=== PATIENT | female | born 1995 | race Asian ===

== ENCOUNTER 2021-05-03 09:50 | Emergency (ER) | payer OTHER ==
[~2021-05-03] VITALS: Ht 154.9 cm; Wt 45.1 kg
[2021-05-03 09:56] VITALS: BP 113/72
[2021-05-03] MEDS ORDERED: IV NORMAL SALINE 1,000ML 1,000 ML IV ONE (10:30)
[2021-05-03] MEDS ORDERED: ONDANSETRON PF 4 MG/2 ML VIAL. IVP ONE (10:30)
--- NOTE | 2021-05-03 10:35 | PHYS DOC ---
Past History Past Medical History: No Pertinent History (MINDY CHAVES APRN) Past Surgical History: Appendectomy, Other Additional Past Surgical Histo: hernia repairx2 (MINDY CHAVES APRN) Smoking: Non-smoker Alcohol Use: None Drug Use: None (MINDY CHAVES APRN) General Adult EDM: Chief Complaint: NAUSEA/VOMITING/DIARRHEA HPI: HPI: Patient is a 25-year-old female that presents today with abdominal pain, nausea/vomiting. Patient states that last evening she ate out at a [employer] establishment and had a steak, she said she woke up this morning about 430 5:00 and started throwing up, she has been unable to keep any liquids down, she had one episode of diarrhea during that time. Patient denies chest pain, shortness of air, fever, or cough. (MINDY CHAVES APRN) Review of Systems: Review of Systems: Constitutional: Denies fever or chills Eyes: Denies change in visual acuity HENT: Denies nasal congestion or sore throat Respiratory: Denies cough or shortness of breath Cardiovascular: Denies chest pain or edema GI: Abdominal pain, nausea, vomiting, diarrhea denies bloody stools : Denies dysuria Musculoskeletal: Denies back pain or joint pain Integument: Denies rash Neurologic: Denies headache, focal weakness or sensory changes Endocrine: Denies polyuria or polydipsia Lymphatic: Denies swollen glands Psychiatric: Denies depression or anxiety (MINDY CHAVES APRN) Current Medications: Current Meds: Current Medications Medications (Trade) Dose Ordered Sig/Tashi Start Time Stop Time Status Last Admin Dose Admin Ondansetron HCl (Zofran) 4 mg 1X ONCE 05/03/21 10:30 05/03/21 10:31 UNV Sodium Chloride 1,000 ml @ 1,000 mls/hr 1X ONCE 05/03/21 10:30 05/03/21 11:29 UNV (MINDY CHAVES APRN) Allergies: Allergies: Allergies Coded Allergies Type Severity Reaction Last Updated Verified No Known Drug Allergies 05/03/21 No (MINDY CHAVES APRN) Physical Exam: PE: Constitutional: Well developed, well nourished, no acute distress, non-toxic appearance. [] HENT: Normocephalic, atraumatic, bilateral external ears normal, oropharynx moist, no oral exudates, nose normal. [] Eyes: PERRLA, EOMI, conjunctiva normal, no discharge. [] Neck: Normal range of motion, no tenderness, supple, no stridor. [] Cardiovascular:Heart rate regular rhythm, no murmur [] Lungs & Thorax: Bilateral breath sounds clear to auscultation [] Abdomen: Inspection and palpation of the abdomen shows abdomen flat somewhat guarded diffusely, tenderness over the umbilicus. Bowel sounds are hypoactive no pulsatile masses noted Skin: Warm, dry, no erythema, no rash. [] Back: No tenderness, no CVA tenderness. [] Extremities: No tenderness, no cyanosis, no clubbing, ROM intact, no edema, cap refill less than 2 seconds peripheral pulses 2+. Neurologic: Alert and oriented X 3, normal motor function, normal sensory function, no focal deficits noted. [] Psychologic: Affect normal, judgement normal, mood normal. [] (MINDY CHAVES APRN) Current Patient Data: Labs: Laboratory Tests Test 05/03/21 10:47 05/03/21 11:00 White Blood Count 17.3 x10^3/uL Red Blood Count 4.47 x10^6/uL Hemoglobin 13.4 g/dL Hematocrit 39.9 % Mean Corpuscular Volume 89 fL Mean Corpuscular Hemoglobin 30 pg Mean Corpuscular Hemoglobin Concent 34 g/dL Red Cell Distribution Width 12.8 % Platelet Count 204 x10^3/uL Neutrophils (%) (Auto) 95 % Lymphocytes (%) (Auto) 1 % Monocytes (%) (Auto) 4 % Eosinophils (%) (Auto) 0 % Basophils (%) (Auto) 0 % Neutrophils # (Auto) 16.3 x10^3uL Lymphocytes # (Auto) 0.2 x10^3/uL Monocytes # (Auto) 0.7 x10^3/uL Eosinophils # (Auto) 0.0 x10^3/uL Basophils # (Auto) 0.0 x10^3/uL Platelet Estimate Pending Urine Collection Type Unknown Urine Color Yellow Urine Clarity Hazy Urine pH 7.0 Urine Specific Marion >=1.030 Urine Protein Neg Urine Glucose (UA) Neg mg/dL Urine Ketones (Stick) Neg mg/dL Urine Blood Trace Urine Nitrite Neg Urine Bilirubin Neg Urine Urobilinogen Dipstick 0.2 mg/dL Urine Leukocyte Esterase Neg Urine RBC 3-5 /HPF Urine WBC 5-10 /HPF Urine Squamous Epithelial Cells Many /LPF Urine Bacteria Many /HPF Urine Mucus Slight /LPF Sodium Level 142 mmol/L Potassium Level 4.1 mmol/L Chloride Level 106 mmol/L Carbon Dioxide Level 25 mmol/L Anion Gap 11 Blood Urea Nitrogen 18 mg/dL Creatinine 0.8 mg/dL Estimated GFR (Cockcroft-Gault) 86.7 BUN/Creatinine Ratio 23 Glucose Level 103 mg/dL Calcium Level 8.5 mg/dL Total Bilirubin 0.8 mg/dL Aspartate Amino Transf (AST/SGOT) 20 U/L Alanine Aminotransferase (ALT/SGPT) 23 U/L Alkaline Phosphatase 57 U/L Total Protein 7.5 g/dL Albumin 4.1 g/dL Albumin/Globulin Ratio 1.2 Lipase 113 U/L Bedside Urine HCG, Qualitative hcg negative Current Medications Medications (Trade) Dose Ordered Sig/Tashi Route PRN Reason Start Time Stop Time Status Last Admin Dose Admin Sodium Chloride 1,000 ml @ 1,000 mls/hr 1X ONCE IV 05/03/21 10:30 05/03/21 11:29 DC 05/03/21 10:56 Ondansetron HCl (Zofran) 4 mg 1X ONCE IVP 05/03/21 10:30 05/03/21 10:38 DC 05/03/21 10:56 Fentanyl Citrate (Fentanyl 2ml Vial) 50 mcg 1X ONCE IVP 05/03/21 10:45 05/03/21 10:46 DC 05/03/21 10:57 Vital Signs: Vital Signs Date Time Temp Pulse Resp B/P (MAP) Pulse Ox O2 Delivery O2 Flow Rate FiO2 05/03/21 09:56 98.1 93 20 113/72 (86) Room Air (MINDY CHAVES APRN) EKG: EKG: [] (MINDY CHAVES SCREEDMAN/LABORER) Radiology/Procedures: Radiology/Procedures: [] (MINDY CHAVES APRN) Heart Score: C/O Chest Pain: N/A Risk Factors: Risk Factors: DM, Current or recent (<one month) smoker, HTN, HLP, family history of CAD, obesity. Risk Scores: Score 0 - 3: 2.5% MACE over next 6 weeks - Discharge Home Score 4 - 6: 20.3% MACE over next 6 weeks - Admit for Clinical Observation Score 7 - 10: 72.7% MACE over next 6 weeks - Early Invasive Strategies (MINDY CHAVES APRN) Course & Med Decision Making: Course & Med Decision Making Pertinent Labs and Imaging studies reviewed. (See chart for details) 1150 I reviewed laboratory results with Dr. Patel, also reviewed all laboratory results with patient did inform patient that her white count was elevated but could be reactionary to her having vomiting and if she has some kind of reaction to the food she ate last night it could be related to that. Patient did state after talking with her that she had her appendix out a couple years ago, did inform her that if her pain starts getting worse or changing any way to return to the emergency department. Patient states her pain is now 3 out of 10, she also states she is able to take p.o. fluids so we will discharge patient for management on outpatient basis for her to return if she is unable to keep any fluids down. Patient and her significant other verbalized understanding of this and agreeable to the plan of care. (MINDY CHAVES APRN) Course & Med Decision Making I was the Attending physician on the above date of service of this patient. This patient was evaluated, examined, treated, and dispositioned from the emergency department by the mid-level practitioner. I reviewed case with COLLECTOR prior to departure and agreed to plan of care that included discharge given symptomatic improvement and no obvious findings on work-up and/or physical exam findings consistent with a surgical abdomen Electronically signed, Lulu Lim DO (LULU LIM DO) Maric[place] Disclaimer: Maricruz Disclaimer: This electronic medical record was generated, in whole or in part, using a voice recognition dictation system. (MINDY CHAVES APRN) Departure Departure: Impression: Primary Impression: Viral gastroenteritis Disposition: HOME / SELF CARE / HOMELESS Condition: STABLE Referrals: PCP,UNKNOWN (PCP) Patient Instructions: Clear Liquid Diet, Viral Gastroenteritis Additional Instructions: Clear liquids for the next 24 hours, then advance to a brat diet (bananas, rice, applesauce, toast, or mashed potatoes), then if tolerating a brat diet advance as tolerated Zofran 4 mg take 1 tablet every 6-8 hours as needed for nausea and vomiting. When taking this medication take 1 tablet with a sip of water, wait 30 to 45 minutes before trying any by mouth fluid. Use with caution may cause constipation Return to the emergency department if your pain worsens, you are unable to keep any fluids down even with the use of Zofran, you start running a fever, or have any other concerns. Scripts Ondansetron (ONDANSETRON ODT) 4 Mg Tab.rapdis 1 TAB PO PRN Q6-8HRS for nasuea, #16 TAB Prov: MINDY CHAVES APRN 05/03/21 MINDY CHAVES APRN May 03, 2021 10:35 LULU LIM DO May 04, 2021 09:12
[2021-05-03 11:13] LABS: BASO % 0 % (0-3); EOS % 0 % (0-3); HEMATOCRIT 39.9 % (36.0-47.0); HEMOGLOBIN 13.4 g/dL (12.0-15.5); LYMPH # 0.2 x10^3/uL (1.0-4.8); LYMPH % 1 % (24-48); MEAN CORPUSCULAR HEMOGLOBIN 30 pg (25-35); MEAN CORPUSCULAR HGB CONC 34 g/dL (31-37); MEAN CORPUSCULAR VOLUME 89 fL (79-100); MONO # 0.7 x10^3/uL (0.0-1.1); MONO % 4 % (0-9); NEUT # 16.3 x10^3uL (1.8-7.7); NEUT % 95 % (31-73); PLATELET COUNT 204 x10^3/uL (140-400); RED BLOOD COUNT 4.47 x10^6/uL (3.50-5.40); RED CELL DISTRIBUTION WIDTH 12.8 % (11.5-14.5); WHITE BLOOD COUNT 17.3 x10^3/uL (4.0-11.0)
[2021-05-03 11:14] LABS: CALCIUM 8.5 mg/dL (8.5-10.1); CREATININE 0.8 mg/dL (0.6-1.0); GFR 86.7; POTASSIUM 4.1 mmol/L (3.5-5.1)
[2021-05-03 11:20] LABS: ALBUMIN 4.1 g/dL (3.4-5.0); ALBUMIN/GLOBULIN RATIO 1.2 (1.0-1.7); TOTAL BILIRUBIN 0.8 mg/dL (0.2-1.0); TOTAL PROTEIN 7.5 g/dL (6.4-8.2)
[2021-05-03 11:31] LABS: BACTERIA,URINE MANY /HPF (0-FEW); BILIRUBIN,URINE NEG (NEG); CLARITY,URINE HAZY; COLOR,URINE YELLOW; GLUCOSE,URINE NEG (NEG); NITRITE,URINE NEG (NEG); SQUAMOUS EPITHELIAL CELL,UR MANY /LPF; UROBILINOGEN,URINE 0.2 mg/dL (0.2 mg/dL)
[2021-05-03] MEDS ORDERED: ONDA4TAB12 PO (11:59)
[2021-05-03 12:17] LABS: % BANDS 2 % (0-9); % LYMPHS 5 % (24-48); % MONOS 6 % (0-10); % SEGS 87 % (35-66); PLT ESTIMATE ADEQUATE (ADEQUATE)
== END 2021-05-03 12:11 | disposition home or self-care (01) ==
LOC: ER 09:50
DX: A08.4 Viral intestinal infection, unspecified (principal); Z90.89 Acquired absence of other organs
CPT/HCPCS: 36415; 80053; 81001; 81025; 83690; 85007; 85025; 87086; 96361; 96374; 96375; 99284; J2405; J3010; J7030